=== PATIENT | male | born 1985 | race Caucasian/White ===

== ENCOUNTER 2020-06-06 03:42 | Emergency (ER) | payer OTHER, SELFPAY ==
[2020-06-06] VITALS (27 sets, daily range): BP systolic 000–161; BP diastolic 00–109; PULSE 92–115; RESP 14–39; TEMP 36.8–38; O2SAT 98–100; BMI 23.3
--- NOTE | 2020-06-06 04:04 | PC.NURSE ---
PT CHANGED OVER BY SECUIRTY DUE TO INGESTION OF DRUGS. PT IS ANXIOUS, PARANOID. PT CLAMMY, DIAPHORETIC, COLD. PT NEUROLOGICALLY INTACT. PT SPEAKING IN FULL AND CLEAR SENTENCES BUT STATED HE IS SO FUCKED UP HE NEEDS TO FOCUS. PT AMBULATED TO BATHROOM WITH THIS RN AND HE HAD A LARGE BOWEL MOVEMENT. SPOKE TO GIRLFRIEND ON PHONE AND SHE EXPLAINED THAT HE USED HEROIN AND COCAINE TODAY AND SOMEONE GAVE HIM A PILL FOR ANXIETY . PER GF DOES NOT USUALLY TAKE PILLS. PT YAWNING APPEARS TO BE IN OPIATE WITHDRAWAL. PTS GIRLFRIEND MACEY CAN BE REACHED AT [phone]
--- NOTE | 2020-06-06 04:09 | PC.NURSE ---
DR OLEARY AT BEDSIDE, PT AWARE HE SCORED 21 ON OPIATE WITHDRAWAL SCALE.
[2020-06-06] MEDS: diphenhydrAMINE HCL 50 MG/ML VIAL 25 MG IVPUSH (04:26)
[2020-06-06] MEDS: LORazepam 2 MG/ML VIAL 1 MG IVPUSH ×7 (04:26→15:43)
[2020-06-06] MEDS: Metoclopramide HCl 10 MG/2 ML VIAL IVPUSH (04:27)
[2020-06-06] MEDS: cloNIDine HCL 0.1 MG TABLET PO (04:27)
[2020-06-06 04:33] LABS: MANUAL DIFF FLAG NO
[2020-06-06 04:34] LABS: Basophils Absolute Auto 0.1 X10*3/uL (0.0-0.2); Basophils Percent Auto 0.5 % (0-2); Eosinophils Absolute Auto 0.2 X10*3/uL (0.0-0.4); Eosinophils Percent Auto 0.8 % (0-4); Hematocrit 52.4 % (42-52); Imm Gran Abs Auto 0.09 X10*3/uL (0.00-0.03); Imm Gran Pct Auto 0.5 % (0.0-0.4); Mean Corpuscular HGB Conc 34.4 g/dl (31.0-36.0); Mean Corpuscular Volume 84.4 fL (80-98); Mean Platelet Volume 9.9 fL (9.4-12.4); Monocytes Absolute Auto 1.4 X10*3/uL (0.1-1.2); Monocytes Percent Auto 7.2 % (2-11); Neutrophils Absolute Auto 13.2 X10*3/uL (2.0-8.3); Platelet Count 354 X10*3/uL (160-400); Red Blood Count 6.21 X10*6/uL (4.60-5.80); Red Cell Distribution Width 12.2 % (11.0-16.0); White Blood Count 18.8 X10*3/uL (4.8-10.8)
--- NOTE | 2020-06-06 04:35 | PC.NURSE ---
pt lined and labbed, medicated per emar. pt hallucinating at this time talking to someone who is not there. pt medicated per emar. attempted to give clonidine po patient put it in his mouth then spit it out due to confusion. pt not answering questions. in veiw on nursing station. pt attempting to get out of bed.
--- NOTE | 2020-06-06 04:37 | PC.NURSE ---
pt taking off all wires
[2020-06-06 05:00] LABS: Ethanol < 10 mg/dL
[2020-06-06 05:05] LABS: Alanine Aminotransferase 61 U/L (0-40); Albumin Level 5.4 g/dL (3.5-5.0); Alkaline Phosphatase 132 U/L (39-117); Anion Gap 22 (12-20); Aspartate Amino Transferase 44 U/L (5-37); Blood Urea Nitrogen 15 mg/dL (9-16); Calcium 11.6 mg/dL (8.4-10.2); Carbon Dioxide 20 mmol/L (22-29); Chloride 100 mmol/L (96-108); Creatinine Clr Calc Pharmacy 70.8; Estimated Glomerular Filt Rate > 60; Glucose Random 94 mg/dL (60-115); Potassium 4.1 mmol/l (3.3-5.1); Sodium 138 mmol/L (135-145); Total Protein 9.7 g/dL (6.5-8.0)
--- NOTE | 2020-06-06 05:10 | PC.NURSE ---
Patient hallucinating, grabbing at air and responding internally. Attempting to climbing out of bed. Sitter maintained at the bedside. Medicated as charted.
--- NOTE | 2020-06-06 05:24 | PC.NURSE ---
SECURITY AT BEDSIDE AT THIS TIME. PT HALLUCINATING AND ATTEMPTING TO GET OUT OF BED. REACHING FOR THINGS THAT ARE NOT THERE AND TALKING TO SOMEONE. PT SPEAKING IN SENEGALESE NOT ORIENTED TO PERSON PLACE OR TIME. NOT MAKING ANY SENSE.
--- NOTE | 2020-06-06 05:26 | ED.OVERDOSE ---
HPI - Overdose General Chief Complaint: ETOH/Substance Use Stated Complaint: reaction to med Time Seen by Provider: 06/06/20 03:57 Source: patient, family ( girlfriend) and EMS Mode of arrival: EMS Limitations: no limitations History of Present Illness HPI Narrative: This is a 34-year-old male was brought in by EMS and is a poor historian on arrival, however history is provided by EMS and his girlfriend who states that patient took heroin as well as cocaine earlier in the evening and then accepted an unknown pill from a friend and then began feeling bad . As per the girlfriend patient appeared to be tired as he had multiple episodes of yawning and then she noted that he started became agitated and sweaty . Related Data Allergies Allergy/AdvReac Type Severity Reaction Status Date / Time No Known Allergies Allergy Verified 06/06/20 03:51 [No Known Allergies*] Review of Systems Review of Systems: Pertinent positives and negatives as stated in HPI 10 point review of systems is otherwise unobtainable. [facility] Past Medical History Source: nursing notes reviewed Medical History Heroin abuse Social History Social History Advance Directives: No Advance Directives Information Provided: No Physical Exam Vital Signs: Vital Signs: Vital Signs Temp Pulse Resp BP Pulse Ox 06/06/20 08:30 100 14 138/88 99 06/06/20 08:15 102 H 16 135/93 H 99 06/06/20 08:00 100 16 124/67 99 06/06/20 07:47 103 H 14 133/57 L 99 06/06/20 07:45 102 H 149/93 H 99 06/06/20 07:30 98.5 F 103 H 14 99 06/06/20 07:20 106 H 14 135/69 100 06/06/20 07:15 98.2 F 106 H 14 135/69 100 06/06/20 07:05 98.2 F 105 H 14 143/92 H 99 06/06/20 07:00 100 21 H 99 06/06/20 06:53 103 H 24 H 99 06/06/20 06:44 109 H 39 H 130/90 H 98 06/06/20 06:33 115 H 20 98 06/06/20 06:30 104 H 24 H 000/00 L 99 06/06/20 06:26 111 H 18 99 06/06/20 06:15 114 H 24 H 144/76 H 98 06/06/20 05:53 102 H 18 106/72 99 06/06/20 05:27 100 22 H 06/06/20 04:27 95 151/103 H 06/06/20 03:51 99 24 H 154/101 H 100 Body Mass Index 23.3 VITAL SIGNS: Reviewed. GENERAL: Well developed, Moderate to severely agitated, noted to be hallucinating HEAD: Normocephalic/atraumatic, EYES: PERRLA, EOMI intact without pain, no nystagmus/pallor/icterus noted EARS: Ext canals without abnormality, TMs non-bulging and non-erythematous NOSE: Nares patent bilateral OROPHARYNX: no oral lesions noted, posterior pharynx clear and non-erythematous without noted tonsillar enlargement/erythema/exudates NECK: Supple, no adenopathy LUNGS: Normal breath sounds. No adventitious sounds or accessory muscle use. SpO2<100> CARDIOVASCULAR: Regular rate and rhythm without noted murmurs, no JVD or lower extremity edema. ABDOMEN: Soft, non-tender, non-distended with bowel sounds. No rigidity. No guarding. No palpable masses or hernias noted, diarrhea MUSCULOSKELETAL: No tenderness, deformities, or effusions noted on gross inspection. EXTREMITIES: No cyanosis, clubbing or edema. SKIN: Inspection of the skin reveals no rashes, ulcerations, jaundice, pallor, or petechiae, positive diaphoresis. NEUROLOGIC: Alert and oriented x 4. Strength and sensation to light touch were grossly intact x 4. Course Course Course Narrative: Is a 34-year-old male with history and clinical presentation consistent of polysubstance abuse and consumption of an unknown pill but given the degree withdrawal symptoms suspect patient may have taken a Suboxone which pushed him into withdrawal. Patient is very agitated and multiple attempts were made to redirect and calm the patient by one-to-one nursing staff with progressively worsening results. Patient received a total of 3 mg of Ativan, Reglan, Benadryl in an attempt to address withdrawal symptoms and the clonidine that was ordered patient spat out at the nursing staff. He continued to become increasingly agitated with obvious auditory and visual hallucinations. On review of all investigations although there is a significant leukocytosis this is likely stress response as there is no evidence to suggest acute infection in the abdomen and no observed coughing or hypoxia to suggest pulmonary etiology. Urine testing has been unable to be completed at this time due to patient's level of agitation , but BAL is negative. Reevaluation(s) Reevaluation #1: Initiated chemical restraint for patient that was unable to be calmed by providing withdrawal medications. Patient was given 5 mg of Zyprexa IM without needing to physically restrain. This was provided after multiple attempts to redirect. Time: 05:49 Reevaluation #2: Despite multiple attempts at medication /chemical restraint, attempts to deescalate, the decision was made that patient required physical restraints and was placed in 4 points. In addition, patient received an additional 5 mg of Zyprexa IM and on re-evaluation still remained highly agitated trying to pull at the restraints. Unable to enter order for physical restraints. Time: 06:15 Reevaluation #3: 75 mg of ketamine was ordered. Time: 06:36 MDM - Overdose Lab Data Result diagrams: 06/06/20 04:26 06/06/20 04:26 Labs: Lab Results 06/06/20 06/06/20 06/06/20 Range/Units 04:26 04:26 04:26 WBC 18.8 H (4.8-10.8) X10*3/uL RBC 6.21 H (4.60-5.80) X10*6/uL Hgb 18.0 (14.0-18.0) g/dl Hct 52.4 H (42-52) % MCV 84.4 (80-98) fL MCH 29.0 (27.0-33.0) pg MCHC 34.4 (31.0-36.0) g/dl RDW 12.2 (11.0-16.0) % Plt Count 354 (160-400) X10*3/uL MPV 9.9 (9.4-12.4) fL Immature Gran % (Auto) 0.5 H (0.0-0.4) % Neut % (Auto) 70.0 (45-73) % Lymph % (Auto) 21.0 (20-40) % [place] % (Auto) 7.2 (2-11) % Eos % (Auto) 0.8 (0-4) % Baso % (Auto) 0.5 (0-2) % Lymph # (Auto) 4.0 (1.2-4.9) X10*3/uL [place] # (Auto) 1.4 H (0.1-1.2) X10*3/uL Eos # (Auto) 0.2 (0.0-0.4) X10*3/uL Baso # (Auto) 0.1 (0.0-0.2) X10*3/uL Abs Immat Gran (auto) 0.09 H (0.00-0.03) X10*3/uL Absolute Neuts (auto) 13.2 H (2.0-8.3) X10*3/uL Absolute Nucleated RBC 0.000 (0.0-0.012) X10*3/uL Nucleated RBC % (auto) 0.0 (0.0-0.2) /100WBC Sodium 138 (135-145) mmol/L Potassium 4.1 (3.3-5.1) mmol/l Chloride 100 (96-108) mmol/L Carbon Dioxide 20 L (22-29) mmol/L Anion Gap 22 H (12-20) BUN 15 (9-16) mg/dL Creatinine 1.29 (0.5-1.4) mg/dL Estim Creat Clear Calc 70.8 Estimated GFR > 60 Random Glucose 94 (60-115) mg/dL Calcium 11.6 H (8.4-10.2) mg/dL Total Bilirubin 1.0 (0.0-1.0) mg/dL AST 44 H (5-37) U/L ALT 61 H (0-40) U/L Alkaline Phosphatase 132 H (39-117) U/L Total Protein 9.7 H (6.5-8.0) g/dL Albumin 5.4 H (3.5-5.0) g/dL Ethyl Alcohol < 10 mg/dL
--- NOTE | 2020-06-06 05:40 | PC.NURSE ---
pt defecated on himself diarrhea. changed at this time. pt having to be redirected multiple times.
--- NOTE | 2020-06-06 05:44 | PC.NURSE ---
per dr correa to chemically restrain patient due to patient status as noted before.
[2020-06-06] MEDS: OLANZapine 10 MG VIAL 5 MG IM ×2 (06:00→06:29)
--- NOTE | 2020-06-06 06:08 | PC.NURSE ---
security val and sitter at bedside. pt defected again on himself. unable to obtain vitals
[2020-06-06] MEDS: Ketamine HCl/NS 50 MG/5 ML SYRINGE 75 MG IVPUSH ×2 (06:43→07:47)
--- NOTE | 2020-06-06 06:47 | PC.NURSE ---
RIGHT LEG RESTRAINT OFF.
--- NOTE | 2020-06-06 06:53 | PC.NURSE ---
RIGHT LEG RESTRAINT OFF
--- NOTE | 2020-06-06 07:00 | PC.NURSE ---
PER BENJAMIN MCNEAL, ALL CHEMICAL RESTRAINT DOCUMENTATION COMPLETE AT THIS TIME. BEHAVIORAL RESTRAINT DOCUMENTATION TO BE CONTINUED.
--- NOTE | 2020-06-06 07:00 | PC.NURSE ---
RECEIVED REPORT FROM BENJAMIN MCNEAL. PT WITH ARMS RESTRAINED. EYES OPEN, BUT UNABLE TO FOCUS. UNABLE TO FOLLOW COMMANDS OR RESPOND TO QUESTIONS. SPEECH INCOMPREHENSIBLE. SKIN PALE, WARM, DRY. RESPIRATIONS EVEN AND NON LABORED. SINUS TACH ON MONITOR. INCONTINENT OF LARGE AMOUNT OF LIQUID STOOL; CLEANED AND LINENS CHANGED.
--- NOTE | 2020-06-06 07:06 | PC.NURSE ---
REPORT GIVEN TO HARVEY ALEXANDER AT 1900. RESTRAINT DOCUMENTATION COMPLETE. PT REMAINS IN RESTRAINTS IN RIGHT AND LEFT WRISTS. PT IS DEFECATING LOOSE STOOL. PT CALMER THAN PRIOR TO KETAMINE ADMINISTRATION.
[2020-06-06] MEDS: 0.9 % Sodium Chloride 1,000 ML 999 ML IVCONT ×2 (07:46→11:56)
--- NOTE | 2020-06-06 07:47 | PC.NURSE ---
PT MEDICATED WITH 75MG IV KETAMINE D/T CONTINUED RESTLESSNESS, AGGITATION, PULLING AT ARM RESTRAINTS. PT CONTINUES TO BE DISORIENTED, UNABLE TO FOLLOW COMMANDS OR ANSWER QUESTIONS. SKIN PALE, WARM, DRY. RESPIRATIONS EVEN AND NON LABORED. PAPER MEDICATION/CHEMICAL DOCUMENTATION FOR 0747 DOSE KETAMINE ON PAPER.
--- NOTE | 2020-06-06 08:51 | PC.NURSE ---
PT CLEANED OF LARGE AMOUNT OF LIQUID STOOL. PT CONTINUES TO BE DISORIENTED, RESTLESS, PULLING AT RESTRAINTS. NOT FOLLOWING COMMANDS/ANSWERING QUESTIONS. WRIST RESTRAINTS REMAIN IN PLACE.
[2020-06-06] MEDS: HYDROmorphone HCl 1 MG/ML SYRINGE IVPUSH (09:13)
--- NOTE | 2020-06-06 09:21 | CT_ITS ---
EXAMINATION: CT CHEST WITHOUT CONTRAST CLINICAL INFORMATION: Fever. COMPARISON: None TECHNIQUE: Multidetector volumetric CT imaging of the chest was done. Axial MIP volume rendering provided. Sagittal and coronal reformatted images were obtained. This CT examination was performed using dose optimization techniques as appropriate, variously including the following: *Automated exposure control *Adjustment of mA and/or kV according to patient size (this includes techniques or standardized protocols for targeted exams where dose is matched to indication/reason for exam; i.e. extremities or head) *Use of iterative reconstruction technique DLP: 378 mGy-cm FINDINGS: DIRECTOR MEDICAL SAFETY: Unremarkable. LUNGS: The lungs are clear with no evidence of inflammation or nodules. MEDIASTINUM: The thyroid lobes are symmetrical and normal. The central trachea and the bronchi widely patent. Heart size and the great vessels are normal caliber. No abnormal size mediastinal or hilar lymph nodes seen. No pericardial effusion. PLEURA: There is no pleural effusion. No pleural mass or thickening. AXILLA: No abnormal axillary lymph nodes seen. The chest wall appears unremarkable. UPPER ABDOMEN: Visualized liver, spleen and pancreas appears unremarkable. There is a small hiatal hernia. OSSEOUS STRUCTURES: Unremarkable. CT/CT chest wo con IMPRESSION: No acute cardiopulmonary process seen. Especially is no evidence of pneumonic consolidation.
--- NOTE | 2020-06-06 09:21 | CT_ITS ---
EXAMINATION: CT HEAD WITHOUT CONTRAST CLINICAL INFORMATION: AMS: COMPARISON: None TECHNIQUE: Contiguous axial imaging was performed from the skull base to vertex without intravenous administration of contrast. This CT examination was performed using dose optimization techniques as appropriate, variously including the following: *Automated exposure control *Adjustment of mA and/or kV according to patient size (this includes techniques or standardized protocols for targeted exams where dose is matched to indication/reason for exam; i.e. extremities or head) *Use of iterative reconstruction technique DLP: 1102 mGy-cm FINDINGS: There is no evidence of acute intracranial hemorrhage or territorial infarction. No abnormal mass effect or midline shift is seen. Garcia to white matter differentiation is well preserved. No extra-axial fluid collections are identified. The ventricles are normal in size. There is no abnormal attenuation within the brain parenchyma. The osseous structures and soft tissues are normal. The mastoid air cells and visualized portions of the paranasal sinuses are well aerated. CT/CT head/brain wo con IMPRESSION: No acute intracranial process seen.
--- NOTE | 2020-06-06 09:22 | ECG_ITS ---
Test Reason : OVERDOSE Blood Pressure : / mmHG Vent. Rate : 085 BPM Atrial Rate : 085 BPM P-R Int : 126 ms QRS Dur : 084 ms QT Int : 402 ms P-R-T Axes : 055 -46 000 degrees QTc Int : 478 ms Normal sinus rhythm Left anterior fascicular block Minimal voltage criteria for LVH, may be normal variant Nonspecific T wave abnormality Prolonged QT Abnormal ECG No previous ECGs available Referred By: Sadia Kruger Electronically Signed By:BRIEN ANDERSON MD
[2020-06-06 10:07] LABS: HCO3 VBG 22 mmol/L; PCO2 VBG 30 mmhg; PO2 VBG 58 mmhg; pH VBG 7.48 (7.32-7.43)
[2020-06-06 10:08] LABS: Oxygen Saturation VBG 92.6 %
[2020-06-06] MEDS: ondansetron HCL 4 MG/2 ML VIAL IVPUSH (10:11)
[2020-06-06] MEDS: HYDROmorphone HCl 2 MG/ML VIAL IVPUSH (10:11)
--- NOTE | 2020-06-06 10:30 | PC.NURSE ---
Bilat wrist restraints released. Pt continues to make mild attempts to get oob, and is still confused. Sitter at bedside able to manage pt behavior.
[2020-06-06 10:42] LABS: Lactic Acid 1.5 mmol/L (0.5-2.0)
--- NOTE | 2020-06-06 10:56 | PC.NURSE ---
PT REMAINS IN RESTRAINTS. HE CONTINUES TO NEED MEDICATION TO HELP HIM WITH HIS REACTION TO AN UNDETERMINED SUBSTANCE AT THIS TIME, AND AGREES TO THE FORM OF TREATMENT.
[2020-06-06 11:04] LABS: SARS COV2 PCR INHOUSE NEGATIVE (Negative)
[2020-06-06 11:27] LABS: MANUAL DIFF FLAG NO
[2020-06-06 11:30] LABS: Basophils Absolute Auto 0.1 X10*3/uL (0.0-0.2); Basophils Percent Auto 0.3 % (0-2); Eosinophils Percent Auto 0.1 % (0-4); Hematocrit 54.3 % (42-52); Hemoglobin 18.6 g/dl (14.0-18.0); Imm Gran Abs Auto 0.24 X10*3/uL (0.00-0.03); Imm Gran Pct Auto 1.4 % (0.0-0.4); Lymphocytes Absolute Auto 2.1 X10*3/uL (1.2-4.9); Lymphocytes Percent Auto 12.2 % (20-40); Mean Corpuscular HGB Conc 34.3 g/dl (31.0-36.0); Mean Corpuscular Volume 84.6 fL (80-98); Mean Platelet Volume 10.9 fL (9.4-12.4); Monocytes Absolute Auto 0.9 X10*3/uL (0.1-1.2); Monocytes Percent Auto 5.4 % (2-11); Neutrophils Absolute Auto 13.9 X10*3/uL (2.0-8.3); Neutrophils Percent Auto 80.6 % (45-73); Platelet Count 410 X10*3/uL (160-400); Red Blood Count 6.42 X10*6/uL (4.60-5.80); Red Cell Distribution Width 12.2 % (11.0-16.0); White Blood Count 17.3 X10*3/uL (4.8-10.8)
[2020-06-06] MEDS: cefTRIAXone sodium 2 GM in 0.9 % Sodium Chloride 50 ML IV (11:31)
[2020-06-06] MEDS: vancomycin HCL 750 MG in 0.9 % Sodium Chloride 250 ML 265 MG IV (11:32)
[2020-06-06 11:57] LABS: Salicylate < 5.0 mg/dL (15-30)
[2020-06-06 12:51] LABS: Procalcitonin 0.06 ng/mL
--- NOTE | 2020-06-06 13:00 | PC.NURSE ---
Pt remains confused and disoriented. Currently unable to perform head ct due to behavior. sitter at bedside.
--- NOTE | 2020-06-06 15:30 | PC.NURSE ---
Pt transported to and from CT. Tolerated well.
[2020-06-06 17:37] LABS: Glucose Urine UA NEG (NEG); Leukocyte Esterase Urine NEG (NEG); Nitrite Urine NEG (NEG); Specific Gravity - Urine >= 1.030 (1.005-1.025); Urine Blood 1+ (NEG); Urine Ketones >=80 MG/DL (NEG); Urine Protein 2+ MG/DL (NEG-TRACE)
[2020-06-06 17:39] LABS: Appearance Urine CLEAR; Color Urine AMBER
[2020-06-06 18:02] LABS: Bacteria Urine 1+ /LPF; Mucus Urine 2+ /LPF; Squamous Epithelial Cell Urine 1+ /LPF; WBC Urine 0-2 /HPF (0-4)
[2020-06-06 18:03] LABS: Amphetamine Screen Urine Not Detected (Not Detect); Barbiturates, Urine Not Detected (Not Detect); Benzodiazepines Screen Urine Not Detected (Not Detect); Cannabinoid Screen Urine POSITIVE (Not Detect); Cocaine Screen Urine POSITIVE (Not Detect); Opiate Screen Urine POSITIVE (Not Detect); Phencyclidine Screen Urine Not Detected (Not Detect)
--- NOTE | 2020-06-07 00:19 | PC.NURSE ---
pt sleeping words are garbbled when awake, sitter at bedside. skin warm and dry no s/s of resp distress.
[2020-06-07 02:00] VITALS: BP 154/95; PULSE 95; O2SAT 100
--- NOTE | 2020-06-07 04:33 | PC.NURSE ---
pt sleeping sitter present. pt states he feels s1 and h1. pt straight cath himself for approx 200cc urine.
--- NOTE | 2020-06-07 04:39 | PC.NURSE ---
pt sleeping sitter present, speach is clearing, pt is more understandable. pt denies s1 or h1
[2020-06-07 06:00] VITALS: BP 140/90; PULSE 98; RESP 18; O2SAT 98
--- NOTE | 2020-06-07 06:20 | PC.NURSE ---
pt drank half of a black coffee. words are still garbbled. pt still sleepy. sitter present.
--- NOTE | 2020-06-07 07:51 | PC.NURSE ---
SITTER MAINTAINED AT BEDSIDE, PT SLEEPING, RESPIRATIONS EASY AND EVEN
--- NOTE | 2020-06-07 13:13 | MHC.CARE ---
Addiction Consult Service note: Patient is a 34 year old Palestinian speaking male who presented to [facility] on [facility]06 in precipitated withdrawal after taking a brown pill after using heroin. Patient appears comfortable during assessment and was able to discuss substance use with this newspaper writer and a Grainer Machine. Patient continues to decline interest in detox at this time. Discussed MAT with patient. Patient reports he is aware of where to get connected with MAT services however was willing to accept the information on local MAT clinics.
--- NOTE | 2020-06-07 14:49 | PC.NURSE ---
PT REMAINS ASLEEP ALL DAY.,COLOR GOOD, SKIN WARM AND DRY, REPEAT BLOOD WORK PENDING
[2020-06-07 15:37] LABS: MANUAL DIFF FLAG NO
[2020-06-07 15:43] LABS: Basophils Absolute Auto 0.1 X10*3/uL (0.0-0.2); Basophils Percent Auto 0.3 % (0-2); Eosinophils Percent Auto 0.1 % (0-4); Hematocrit 51.5 % (42-52); Hemoglobin 17.8 g/dl (14.0-18.0); Imm Gran Abs Auto 0.11 X10*3/uL (0.00-0.03); Imm Gran Pct Auto 0.6 % (0.0-0.4); Lymphocytes Absolute Auto 2.4 X10*3/uL (1.2-4.9); Lymphocytes Percent Auto 12.4 % (20-40); Mean Corpuscular HGB Conc 34.6 g/dl (31.0-36.0); Mean Corpuscular Hemoglobin 29.3 pg (27.0-33.0); Mean Corpuscular Volume 84.8 fL (80-98); Mean Platelet Volume 10.4 fL (9.4-12.4); Monocytes Absolute Auto 1.4 X10*3/uL (0.1-1.2); Monocytes Percent Auto 7.3 % (2-11); Neutrophils Percent Auto 79.3 % (45-73); Platelet Count 311 X10*3/uL (160-400); Red Blood Count 6.07 X10*6/uL (4.60-5.80); Red Cell Distribution Width 12.7 % (11.0-16.0); White Blood Count 18.9 X10*3/uL (4.8-10.8)
[2020-06-07 16:10] LABS: Alanine Aminotransferase 49 U/L (0-40); Albumin Level 4.5 g/dL (3.5-5.0); Alkaline Phosphatase 119 U/L (39-117); Anion Gap 15 (12-20); Aspartate Amino Transferase 51 U/L (5-37); Bilirubin Total 0.9 mg/dL (0.0-1.0); Blood Urea Nitrogen 20 mg/dL (9-16); Carbon Dioxide 23 mmol/L (22-29); Chloride 108 mmol/L (96-108); Creatinine Clr Calc Pharmacy 64.8; Estimated Glomerular Filt Rate 58; Glucose Random 146 mg/dL (60-115); Sodium 142 mmol/L (135-145)
[2020-06-07 16:40] VITALS: PULSE 85; RESP 16; TEMP 36.1
== END 2020-06-07 16:43 | disposition home or self-care (01) ==
PROVIDERS: Physician Assistant; Student in an Organized Health Care Education/Training Program; Emergency Provider Emergency Medicine; PCP Internal Medicine
DX: T40.1X1A Poisoning by heroin, accidental (unintentional), initial encounter (principal); R51.9 Headache, unspecified; F14.10 Cocaine abuse, uncomplicated; F11.10 Opioid abuse, uncomplicated; R41.82 Altered mental status, unspecified; Y92.9 Unspecified place or not applicable; Z71.51 Drug abuse counseling and surveillance of drug abuser; Z20.828 Contact with and (suspected) exposure to other viral communicable diseases
CPT/HCPCS: 36415; 70450; 71250; 80053; 80307; 80320; 81001; 82803; 83605; 84145; 85025; 87040; 93005; 96361; 96365; 96375; 96376; 99285; G0480; J0696; J1170; J1200; J2060; J2405; J2765; J3370; U0003

== ENCOUNTER 2020-10-29 18:27 | Emergency (ER) | payer OTHER, SELFPAY | END 2020-10-29 20:24 | disposition left against medical advice (07) | PROVIDERS: Emergency Provider Emergency Medicine | DX: Z20.822 Contact with and (suspected) exposure to COVID-19 (principal); F11.10 Opioid abuse, uncomplicated ==

== ENCOUNTER 2020-10-30 11:27 | Outpatient (REF) | payer OTHER, SELFPAY ==
[2020-10-30 14:21] LABS: SARS COV2 PCR INHOUSE NEGATIVE (Negative)
== END 2020-10-30 11:28 | disposition home or self-care (01) ==
LOC: HO.LAB 11:27
PROVIDERS: Visit Provider Internal Medicine
DX: Z20.822 Contact with and (suspected) exposure to COVID-19 (principal)
CPT/HCPCS: C9803; U0003

== ENCOUNTER 2021-10-19 00:11 | Emergency (ER) | payer OTHER, SELFPAY ==
[2021-10-19 00:21] VITALS: BP 145/104; PULSE 95; RESP 16; TEMP 37.1; O2SAT 94; BMI 29.1
[2021-10-19 01:01] VITALS: BP 154/70; PULSE 72; RESP 16; TEMP 37.1; O2SAT 98
--- NOTE | 2021-10-19 01:15 | ED.DENTAL ---
HPI - Dental/Oral General Chief complaint: Dental/Oral Stated complaint: Dental pain Time Seen by Provider: 10/19/21 01:10 Source: patient Mode of arrival: ambulatory Limitations: no limitations History of Present Illness HPI Narrative: patient with dental cavities broke his posterior part of left 2nd molar while eating complaining of increased pain for last 2 weeks no fever no chills no facial swelling Related Data Previous Rx's Medication Instructions Recorded amoxicillin 875 mg-potassium 1 tab PO BID #20 tab 10/19/21 clavulanate 125 mg tablet oxycodone 5 mg tablet 5 mg PO Q6H PRN #20 tab 10/19/21 Allergies Allergy/AdvReac Type Severity Reaction Status Date / Time No Known Allergies Allergy Verified 06/06/20 03:51 [No Known Allergies*] Review of Systems Review of Systems: Yes all other systems are reviewed and are negative PMFSH Past Medical History Medical History Heroin abuse Social History Social History Alcohol intake: unknown Substance Use Type: Unknown Advance Directives: No Advance Directives Information Provided: No Physical Exam Vital Signs: Vital Signs: Last Vital Signs Temp 98.7 F 10/19/21 01:01 Pulse 72 10/19/21 01:01 Resp 16 10/19/21 01:01 BP 154/70 H 10/19/21 01:01 Pulse Ox 98 10/19/21 01:01 BMI result Body Mass Index 29.1 Const: General: no acute distress HENMT: Teeth image: 1. broken posterior part of left upper 2nd no surrounding swelling tender to touch Throat: Yes posterior oropharynx normal Resp: Effort & Inspection: normal respiratory effort Auscultation: clear to auscultation bilaterally Discharge Plan Discharge Clinical Impression: Dental caries Patient Disposition: Home, Self-Care Instructions: Toothache (ED) Additional Instructions: take antibiotic and pain medicine as advised follow up with dentist Prescriptions: New amoxicillin-pot clavulanate 875-125 mg tablet 1 tab PO BID Qty: 20 0RF oxycodone 5 mg tablet 5 mg PO Q6H PRN (Reason: Pain, Moderate) Qty: 20 0RF Interventions: ED Discharge Assessment Last Done: 03/19/22 01:52 Discharge Date/Time: 10/19/21 01:53
== END 2021-10-19 01:53 | disposition home or self-care (01) ==
PROVIDERS: Emergency Provider Internal Medicine
DX: K08.89 Other specified disorders of teeth and supporting structures (principal); K02.9 Dental caries, unspecified
CPT/HCPCS: 99283; 99284